=== PATIENT | female | born 1965 | race Two or more races ===

== ENCOUNTER 2018-11-11 20:17 | Emergency (ER) | payer OTHER ==
--- NOTE | 2018-11-11 20:33 | PDOC ---
Rapid Medical Evaluation Chief Complaint: Rash Time Seen by Provider: 11/11/18 20:32 Medical Evaluation: Allergies Allergy/AdvReac Type Severity Reaction Status Date / Time egg Allergy Verified 09/12/17 16:53 11/11/18 20:32 I performed a brief in person evaluation. CC: Rash HPI: Pt is a 53 Yo female with a hx of rash x 1 day. PE: Skin: Pt has macular erythematous diffuse lesions on UE bilaterally. No signs of secondary infection. Lungs: Clear Heart: RRR MS: Moves all extremities without difficulty Neuro: Alert Psych: Appropriate affect Pt will go to [facility] for further evaluation. Discharge Disposition - Diagnosis Rash - Referrals Referrals: Abhishek Bhakta MD [Primary Care Provider] - - Patient Instructions - Post Discharge Activity
[2018-11-11 20:35] VITALS: BP 108/65; PULSE 83; TEMP 98; BMI 31.8
[2018-11-11] MEDS ORDERED: DEXAMETHASONE LIQUID 0.5 MG/5 ML 240 ML BULK BOTTLE PO ONE (21:18)
[2018-11-11] MEDS ORDERED: DEXAMETHASONE SOD PHOSPHATE 4 MG/1 ML VIAL ONE (21:24)
--- NOTE | 2018-11-11 21:24 | PDOC ---
History of Present Illness - General Chief Complaint: Rash Stated Complaint: RASH Time Seen by Provider: 11/11/18 20:32 - History of Present Illness Initial Comments: 11/11/18 21:21 53 y/o F w/o CM presents for evalu of rash x1 d no systemic symptoms Past History - Past Medical History Allergies/Adverse Reactions: Allergies Allergy/AdvReac Type Severity Reaction Status Date / Time egg Allergy Verified 11/11/18 20:35 COPD: No Diabetes: Yes GI Disorders: Yes (GASTRITIS) Thyroid Disease: No - Surgical History Appendectomy: Yes Cholecystectomy: Yes - Suicide/Smoking/Psychosocial Hx Smoking History: Never smoked Have you smoked in the past 12 months: No Number of Cigarettes Smoked Daily: 0 Information on smoking cessation initiated: No Hx Alcohol Use: No Drug/Substance Use Hx: No Substance Use Type: None Review of Systems - Review of Systems Constitutional: No: Fever Respiratory: No: Shortness of Breath Integumentary: Yes: Pruritus, Rash *Physical Exam - Vital Signs Last Vital Signs Temp Pulse Resp BP Pulse Ox 98.0 F 83 17 108/65 98 11/11/18 20:33 11/11/18 20:33 11/11/18 20:33 11/11/18 20:33 11/11/18 20:33 - Physical Exam Comments: 11/11/18 21:22 HEAD: NC/AT EYES: Conjuntiva clear Ears: Canals and TM's normal NOSE: No d/c THROAT: Moist mucous membrances, oral pharanx clear, uvula midline NECK: Supple without adenopathy CARDIAC: S1 S2 LUNGS: CTA Full and Equal breath sounds ABDOMEN: Soft NT ND MS: Full ROM in all joints without edema NEUROLOGIC: No gross sensory or motor deficits, NVID SKIN: Normal color and temperature there are diffuse wheals throughout the anterior aspect of the chest anteriorly neck and bilateral forearms no indication of secondary infection. Moderate Sedation - Procedure Monitoring Vital Signs: Procedure Monitoring Vital Signs Temperature 98.0 F 11/11/18 20:33 Pulse Rate 83 11/11/18 20:33 Respiratory Rate 17 11/11/18 20:33 Blood Pressure 108/65 11/11/18 20:33 O2 Sat by Pulse Oximetry (%) 98 11/11/18 20:33 *DC/Admit/Observation/Transfer Diagnosis at time of Disposition: Rash, Rash due to allergy - Discharge Dispostion Disposition: HOME Condition at time of disposition: Stable Decision to Admit order: No - Referrals Referrals: Abhishek Bhakta MD [Primary Care Provider] - - Patient Instructions Printed Discharge Instructions: DI for Rash Additional Instructions: Return to the emergency room should symptoms worsen or go unresolved. He may take Benadryl at home fear rash. Calamine lotion and warm oatmeal baths will help. Follow-up with your primary care physician in one to 2 days for further evaluation and treatment options. He will given a long-acting steroid in the emergency room which should help suppress the rash. - Post Discharge Activity
== END 2018-11-11 21:37 | disposition home or self-care (01) ==
LOC: JERFT 20:17
DX: T78.49XA Other allergy, initial encounter (principal); R21 Rash and other nonspecific skin eruption; X58.XXXA Exposure to other specified factors, initial encounter
CPT/HCPCS: 99281-25

== ENCOUNTER 2019-01-28 20:32 | Emergency (ER) | payer OTHER ==
[2019-01-28 20:41] VITALS: BP 102/69; PULSE 85; TEMP 98.1; BMI 31.6
--- NOTE | 2019-01-28 20:41 | PDOC ---
Rapid Medical Evaluation Time Seen by Provider: 01/28/19 20:39 Medical Evaluation: Allergies Allergy/AdvReac Type Severity Reaction Status Date / Time egg Allergy Verified 11/11/18 20:35 01/28/19 20:39 Pt presents to the ED for vomiting and stomach pain for one day; pt states she vomited outside. SHX: appendectomy, cholecystectomy Exam: Epigastric tenderness. Orders: labs, IV insert, urine Pt to proceed to the ED for further evaluation Discharge Disposition - Diagnosis Vomiting - Referrals - Patient Instructions - Post Discharge Activity
[2019-01-28 21:05] LABS: BASO % 0.3 % (0-2.0); EOS % 1.4 % (0-4.5); HEMATOCRIT 40.7 % (32.4-45.2); HEMOGLOBIN 13.6 GM/dL (10.7-15.3); LYMPH % 12.5 % (8-40); MCH 30.3 pg (25.7-33.7); MCHC 33.3 g/dl (32.0-36.0); MEAN CELL VOLUME 91.1 fl (80-96); MEAN PLT VOLUME 8.8 fl (7.5-11.1); MONO % 3.1 % (3.8-10.2); NEUT % 82.7 % (42.8-82.8); PLATELET COUNT 199 K/MM3 (134-434); RBC 4.47 M/mm3 (3.60-5.2); RDW 13.3 % (11.6-15.6); WHITE BLOOD COUNT 8.3 K/mm3 (4.0-10.0)
[2019-01-28 21:28] LABS: ALBUMIN 4.2 g/dl (3.4-5.0); ALK PHOS 103 U/L (45-117); ANION GAP 6 MMOL/L (8-16); BILIRUBIN,TOTAL 1.4 mg/dL (0.2-1); BLOOD UREA NITROGEN 21 mg/dL (7-18); CALCIUM 8.9 mg/dL (8.5-10.1); CHLORIDE 109 mmol/L (98-107); CO2 26 mmol/L (21-32); CREATININE 0.6 mg/dL (0.55-1.3); GLUCOSE,RANDOM 103 mg/dL (74-106); POTASSIUM 4.2 mmol/L (3.5-5.1); SGOT/AST 41 U/L (15-37); SGPT/ALT 32 U/L (13-61); SODIUM 141 mmol/L (136-145)
[2019-01-28 21:34] LABS: HCG,QUALITATIVE URINE Negative
[2019-01-28 21:58] LABS: EPI CELLS 7.2 /HPF (0-5); HYALINE CASTS 8 /hpf (0-8); PH,URINE 5.5 (5.0-8.0); URINE APPEARANCE CLEAR; URINE BACTERIA 152.3 /hpf (NEGATIVE); URINE BILIRUBIN NEGATIVE (NEGATIVE); URINE COLOR YELLOW; URINE GLUCOSE (UA) NEGATIVE (NEGATIVE); URINE KETONE 1+ (NEGATIVE); URINE LEUK ESTERASE TRACE (NEGATIVE); URINE NITRITE NEGATIVE (NEGATIVE); URINE PROTEIN TRACE (NEGATIVE); URINE RBC 5 /hpf (0-4); URINE WBC 7 /hpf (0-5)
[2019-01-28] MEDS ORDERED: ONDANSETRON 4 MG/2 ML VIAL IVPUSH ONE (23:18)
[2019-01-28] MEDS ORDERED: LACTATED RINGERS SOLUTION 1000 ML INFUS.BAG IV ONE (23:18)
[2019-01-28] MEDS ORDERED: ACETAMINOPHEN 500 MG TABLET (FP) PO ONE (23:21)
[2019-01-28] MEDS ORDERED: FAMOTIDINE 20 MG/50 ML IVPB 20 MG/50 ML MG IVPB ONE ×2 (23:23→23:47)
[2019-01-28] MEDS ORDERED: ACETAMINOPHEN 1000 MG/100 ML VIAL (NON FORMULARY) IVPB ONE (23:23)
--- NOTE | 2019-01-28 23:24 | PDOC ---
Attending Attestation - HPI HPI: 01/28/19 23:29 The patient is a 53 year old female with a past medical history of diabetes here today for evaluation of vomiting and abdominal pain. The patient reports that her symptoms of nausea, vomiting (non bloody, non bilious), diffuse abdominal pain, and general back myalgia started on 01/24/19 but was worse today. She also notes a burning sensation when she urinates. Patient denies headache, lightheadedness. Denies fever, chills. Denies chest pain, shortness of breath. Denies diarrhea. Allergies: egg - Physicial Exam PE: 01/28/19 23:30 Constitutional: Awake, alert, oriented. No acute distress. Head: Normocephalic. Atraumatic Eyes: PERRL. EOMI. Conjunctivae are not pale. ENT: Mucous membranes are moist and intact. Posterior pharynx without exudates or erythema. Uvula midline. Neck: Supple. Full ROM. No lymphadenopathy. Cardiovascular: Regular rate. Regular rhythm. S1, S2 regular. Distal pulses are 2+ and symmetric. Pulmonary/Chest: No evidence of respiratory distress. Clear to auscultation bilaterally No wheezing, rales or rhonchi. Abdominal: +epigastric tenderness. Soft and non-distended. No rebound, guarding or rigidity. No organomegaly. No palpable masses. Good bowel sounds. Back: No CVA tenderness. Musculoskeletal: No edema. No cyanosis. No clubbing. Full range of motion in all extremities. No calf tenderness. Radial/pedal pulses are intact and 2+ bilaterally Skin: Skin is warm and dry. No petechiae. No purpura. Neurological: Alert and oriented to person, place, and time. Cranial nerves II -XII are grossly intact. Normal speech. Strength is grossly symmetric. No sensory deficits. Psychiatric: Good eye contact. Normal interaction, affect and behavior. <Jose F Cowart - Last Filed: 01/28/19 23:32> - Resident Resident Name: Flash Eddy - ED Attending Attestation I have performed the following: I have examined & evaluated the patient, The case was reviewed & discussed with the resident, I agree w/resident's findings & plan, Exceptions are as noted - Medical Decision Making 01/28/19 23:24 I, Dr. Mary Michael, DO, attest that this document has been prepared under my direction and personally reviewed by me in its entirety. I further attest, that it accurately reflects all work, treatment, procedures and medical decision -making performed by me. 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 <Jose F Cowart - Last Filed: 01/28/19 23:32>
--- NOTE | 2019-01-28 23:42 | PDOC ---
History of Present Illness - General Chief Complaint: Nausea/Vomiting Stated Complaint: VOMITING/ABD PAIN Time Seen by Provider: 01/28/19 20:39 History Source: Patient, Spouse ( present at bedside.), Side Boss Used (Member of staff provided interpretation.) Exam Limitations: Language Barrier - History of Present Illness Initial Comments: HPI: 53 y/o female presenting to [facility] ER complaining of diffuse abdominal pain, vomiting, and dysuria since Saturday. States symptoms started with a few episodes of nonbloody and nonbilious vomiting. Endorsing diffuse abdominal pain with possible localization in epigastric region. Diffuse myalgia in back. Denies fevers or chills. Endorses dysuria without hematuria or increased urinary frequency. is in the department being evaluated for similar symptoms. Pt is Lithuanian speaking. Bilingual member of staff provided interpretation. 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 Medical Hx: - Diabetes managed with metformin Past History - Past Medical History Allergies/Adverse Reactions: Allergies Allergy/AdvReac Type Severity Reaction Status Date / Time egg Allergy Verified 01/28/19 20:41 Home Medications: Ambulatory Orders Acetaminophen [Tylenol] 650 mg PO PRN 01/29/19 Nitrofurantoin Monohyd/M-Cryst [Macrobid -] 100 mg PO BID #14 capsule 01/29/19 Ondansetron [Zofran Odt -] 4 mg SL TID PRN #10 od.tablet 01/29/19 COPD: No Diabetes: Yes GI Disorders: Yes (GASTRITIS) Thyroid Disease: No - Surgical History Appendectomy: Yes Cholecystectomy: Yes - Suicide/Smoking/Psychosocial Hx Smoking History: Never smoked Have you smoked in the past 12 months: No Number of Cigarettes Smoked Daily: 0 Hx Alcohol Use: No Drug/Substance Use Hx: No Substance Use Type: None Review of Systems - Review of Systems Able to Perform ROS?: Yes Comments:: In addition to that documented in the HPI above, the additional ROS was obtained : Constitutional: Denies fevers or chills Head: Denies vision changes ENMT: Denies sore throat CV: Denies chest pain Resp: Denies SOB GI: Endorses vomiting. Denies diarrhea : Endorses painful urination MSK: Denies recent trauma Skin: Denies new rashes Neuro: Denies new numbness or tingling or weakness Endocrine: Denies polyuria Heme: Denies bleeding or bruising *Physical Exam - Vital Signs Last Vital Signs Temp Pulse Resp BP Pulse Ox 98.1 F 85 18 102/69 97 01/28/19 20:38 01/28/19 20:38 01/28/19 20:38 01/28/19 20:38 01/28/19 20:38 - Physical Exam Comments: Constitutional: Well-developed, well-nourished female in no acute distress or obvious discomfort. Found sitting upright on hospital chair next to husbands hallway bed. Alert and oriented x4. Answered all questions appropriately and completely. Speech was non-labored, non-pressured. Observed walking unassisted throughout the department without obvious difficulty. Head: Normocephalic. No obvious external signs of trauma. Eyes: Sclerae white. Ears: Hearing grossly intact. Nose: No nasal discharge. Neck: Supple, trachea is midline. Cardiovascular / Chest: Regular rate and regular rhythm. No murmur, rubs, clicks, or gallops. Peripheral pulses: radial pulses full. Respiratory: Breathing unlabored. Equal chest rise and fall. Clear to auscultation bilaterally. No stridor, no wheezing, no rhonchi. Gastrointestinal: abdomen is diffusely tender, worse in epigastric region. No rebound or guarding. Globally, abdomen is soft and nondistended. No pulsatile masses. No overlying skin lesions or obvious signs of trauma. Neuro: Alert and oriented. Moving all four extremities spontaneously. Gait normal. Skin: Warm, dry, and intact. : No R or L CVA tenderness. Psych: Affect: appropriate. Mood: normal. ED Treatment Course - LABORATORY CBC & Chemistry Diagram: 01/28/19 20:54 01/28/19 20:54 - ADDITIONAL ORDERS Additional order review: Laboratory Results 01/28/19 01/28/19 21:05 20:54 Sodium 141 Potassium 4.2 Chloride 109 H Carbon Dioxide 26 Anion Gap 6 L BUN 21 H Creatinine 0.6 Creat Clearance w eGFR 104.57 Random Glucose 103 Calcium 8.9 Total Bilirubin 1.4 H AST 41 H ALT 32 Alkaline Phosphatase 103 Total Protein 8.0 Albumin 4.2 Urine Color Yellow Urine Appearance Clear Urine pH 5.5 Ur Specific [place] 1.036 H Urine Protein Trace Urine Glucose (UA) Negative Urine Ketones 1+ H Urine Blood Negative Urine Nitrite Negative Urine Bilirubin Negative Urine Urobilinogen 1.0 Ur Leukocyte Esterase Trace Urine WBC (Auto) 7 Urine RBC (Auto) 5 Urine Casts (Auto) 8 U Epithel Cells (Auto) 7.2 Urine Bacteria (Auto) 152.3 Urine HCG, Qual Negative 01/28/19 20:54 RBC 4.47 MCV 91.1 MCHC 33.3 RDW 13.3 D MPV 8.8 Neutrophils % 82.7 D Lymphocytes % 12.5 D Monocytes % 3.1 L Eosinophils % 1.4 Basophils % 0.3 - RADIOLOGY Radiology Studies Ordered: Category Date Time Status ABDOMEN US -LIMITED [US] Stat Ultrasound 01/28/19 23:20 Taken - Medications Given in the ED: ED Medications Discontinued Medications Generic Name Dose Route Start Last Admin Trade Name Didierq PRN Reason Stop Dose Admin Acetaminophen 975 mg 01/28/19 23:21 01/28/19 23:52 Tylenol - PO 01/28/19 23:22 Not Given ONCE ONE Acetaminophen 1,000 mg 01/28/19 23:23 01/28/19 23:52 Ofirmev Injection - IVPB 01/28/19 23:24 Not Given ONCE ONE Famotidine/Sodium Chloride 20 mg in 50 mls @ 100 mls/hr 01/28/19 23:23 23:52 Pepcid 20 Mg Premixed Ivpb - IVPB 01/28/19 23:52 Not Given ONCE ONE Lactated Ringer's 1,000 ml 01/28/19 23:18 01/28/19 23:52 Lactated Ringers Solution IV 01/28/19 23:19 Not Given ONCE ONE Ondansetron HCl 4 mg 01/28/19 23:18 01/28/19 23:52 Zofran Injection IVPUSH 01/28/19 23:19 Not Given ONCE ONE Medical Decision Making - Medical Decision Making *Reviewed vital signs, nursing notes, and prior visit documentation (if available). 53 y/o female complaining of diffuse abdominal pain, vomiting, and dysuria. Afebrile. Vitals unremarkable for hypotension or tachycardia. No peritoneal signs. Suspect likely viral gastritis. Possible cystitis given urinary frequency. CBC unremarkable for leukocytosis. UA revealed trace leukocyte esterase, 7 WBC, and 152 bacteria. Will prescribe Nitrofurantoin for possible cystitis given reported dysuria with marginal UA results. Pt reassessed and reports feeling much better after receiving prescribed ED medications. Repeat abdominal exam is unchanged. No peritoneal signs. Will prescribe SL Zofran for further symptom relief. Discussed imaging and laboratory results with pt. Answered all questions. Provided return precautions. Pt expressed verbal understanding and agreement with plan to discharge home with outpatient follow up. Of note, pts care and disposition were delayed as she initially declined any medical intervention. *DC/Admit/Observation/Transfer Diagnosis at time of Disposition: Dysuria, Diffuse abdominal pain Vomiting Qualifiers: Vomiting type: unspecified Vomiting Intractability: non-intractable Nausea presence: with nausea Qualified Code(s): R11.2 - Nausea with vomiting, unspecified - Discharge Dispostion Disposition: HOME Condition at time of disposition: Good Decision to Admit order: No - Prescriptions Prescriptions: Nitrofurantoin Monohyd/M-Cryst [Macrobid -] 100 mg PO BID #14 capsule Ondansetron [Zofran Odt -] 4 mg SL TID PRN #10 od.tablet PRN Reason: Nausea / Vomiting - Referrals Schedule a call back: Urine Culture - Patient Instructions Printed Discharge Instructions: DI for Vomiting -- Adult Additional Instructions: Hoy te vieron por dolor abdominal, vmitos y dolor al orinar. Rain anlisis de mary fue normal, adems de giovani ligera elevacin en giovani de alisha enzimas hepticas. La ecografa de rain estmago era normal. Debe hacer un seguimiento con rain mdico de atencin primaria esta semana para giovani evaluacin adicional. Alisha nuseas, vmitos y dolor abdominal son probablemente de giovani infeccin viral. Rain orina era normal, alex debido a que tiene la miccin dolorosa, le he enviado giovani receta de un antibitico a rain farmacia. Yasmany corby se indica en el prospecto. Por favor contine bebiendo lquidos (agua, Gatorade, etc.) para mantenerse hidratado. Puede probar y comer giovani comida blanda (galletas, etc.) despus de beata dejado de vomitar collin 12 horas. He enviado giovani receta para Zofran a rain farmacia. Yasmany corby se indica en el prospecto. No consuma mas de la dosis recomendada. Regrese a la best de emergencias si rain vmito empeora y ya no puede retener lquidos, si comienza a sentirse deshidratado, si tiene fiebre, se desmaya, se desorienta, comienza a vomitar mary, tiene diarrea con mary o sientes que necesitas atencin de emergencia adicional. You were seen today for abdominal pain, vomiting, and painful urination. Your blood work was normal aside from a slight elevation in one of your liver enzymes. The ultrasound of your stomach was normal. You should follow up with your primary care doctor this week for further evaluation. Your nausea, vomiting , and abdominal pain are likely from a viral infection. Your urine was normal but because you are having the painful urination, I have sent a prescription for an antibiotic to your pharmacy. Take as directed on the package insert. Please continue to drink fluids (water, Gatorade, etc) to stay hydrated. You can try and eat a small bland meal (crackers, etc) after you have stopped vomiting for 12 hours. I have sent a prescription for Zofran to your pharmacy. Take as directed on the package insert. Do not take more than the recommended dose. Return to the emergency room if your vomiting becomes much worse and you are no longer able to keep fluids down, if you begin to feel dehydrated, if you develop a fever, pass out, become disoriented, begin vomiting blood, have bloody diarrhea, or you feel like you need additional emergency care. Print Language: ARGENTINE - Post Discharge Activity Forms/Work/School Notes: Back to Work
[2019-01-28] MEDS ORDERED: ACETAMINOPHEN INJECTION 100 ML IVPB ONE (23:46)
[2019-01-28] MEDS ORDERED: ONDANSETRON 4 MG/2 ML VIAL ONE (23:47)
== END 2019-01-29 04:25 | disposition home or self-care (01) ==
LOC: JER 20:32
DX: N30.00 Acute cystitis without hematuria (principal); R11.10 Vomiting, unspecified
CPT/HCPCS: 36415; 76705-TC; 80053; 81003; 84703; 85025; 87086; 87804; 99283-25